=== PATIENT | male | born 1955 | race Caucasian/White ===

== ENCOUNTER 2023-01-24 07:15 | Outpatient (CLI) | payer MEDICARE, MEDICAID | END 2023-01-24 23:59 | disposition short-term general hospital (02) | LOC: EMS 07:15 | DX: K62.5 Hemorrhage of anus and rectum (principal); R11.0 Nausea | CPT/HCPCS: A0425; A0427 ==

== ENCOUNTER 2023-02-04 09:21 | Outpatient (CLI) | payer MEDICARE, MEDICAID ==
[2023-02-04 11:05] VITALS: BP 126/72
--- NOTE | 2023-02-04 11:05 | SLEEP CARE CONSULTATION ---
Information from patient questionnaire entered by Shanna Murray. I have reviewed and concur with the information entered by Shanna Murray. This document represents the service I personally performed and the decisions made by me, Darion Herzog MD, [facility]. History of Present Illness Service Date and Time: 02/04/2023920 Reason for Visit: New patient Snores at night: Yes Sleeps alone due to snoring: No Number of times waking at night: 2-3 Reasons for waking at night: reports: Bathroom, Other (UNKOWN) Toss, Turn, or Twitch while sleeping: Yes Recalls having dreams: Yes Usually gets out of bed at: 6AM Feels refreshed in the morning: No Morning headache: Yes Sleepy or fatigued during the day: Yes Ever fallen asleep while driving: No Takes day naps: Yes Dreams during day naps: No Prior sleep studies: Yes ([facility]) Additional HPI information: I had the pleasure of seeing Mr. Valencia along with his today regarding obstructive sleep apnea-hypopnea. As you know, he is a 67-year-old gentleman who was diagnosed with the sleep-disordered breathing at [facility] in [place] on 09/05/2012. The AHI was 45.3. He was prescribed a BiPAP device set at 14/8 cmH2O. He also uses oxygen supplement at 2 L/minute. He uses every night and all night. The compliance data show usage in 88 out of the past 90 nights, averaging 8.8 hours a night. The residual AHI is 0.5 and average air leak is 4.4 L/minute. He wears a full face mask. He gets his supplies from [employer]. He finds the treatment very beneficial. His current BiPAP is only 3 months old - Parasomnia Symptoms Ever been unable to move upon waking from sleep: No Walks in sleep: No Talks in sleep: No Ever acted out dreams in sleep: No Ever felt weak in the knees when startled or emotional: No Bothered by creepy, crawly, restless sensations in legs: Yes Problems with memory or concentration: No Subjective Initial [place] Sleepiness Scale score: 3 (02/04/23) Social History The patient's occupation is a RE. Patient is and lives in [place]. Have you smoked in the past 12 months: No Years of smokin Quit date: 2002 Alcohol use: No Caffeine use: Yes Caffeine amount and frequency: 1POT A WEEK Family History Family history of sleep disordered breathing: No Allergies and Home Medications Known drug allergies: Yes Drug allergies reviewed: Yes Home medication list reviewed: Yes Review of Systems Cardiovascular: reports: high blood pressure, leg or foot swelling Respiratory: reports: wheeze, sputum production Gastrointestinal: reports: heartburn, nausea, diarrhea, abdominal pain Urinary: reports: frequency, urgency Neurological: reports: headaches Psychiatric: reports: claustrophobia Ear/Nose/Throat: reports: nasal congestion, sinus problems, dry mouth/throat, injury to nose Endocrine: reports: sluggishness, too hot or cold, excessive thirst, increased urination, unexplained weakness Musculoskeletal: reports: joint pain, neck pain, back pain, joint swelling, muscle pain or cramping, mobility problems Immunologic: reports: sneezing, rash, itching Physical Exam Vital signs obtained and entered by: SHANNA Villarreal MA Blood Pressure: 126/72 (LEFT ARM) Cuff size: regular Heart Rate: 57 O2 Saturation: 96 Height: 5 ft 10 in Weight: 302 lb Body Mass Index: 43.3 BMI Classification: Morbidly Obese Neck circumference: 19.75 Mood/affect: Normal HEENT: No craniofacial malformation Nostrils: patent to airflow Turbinates: normal Septum: midline Mouth and throat: narrow oropharynx (no upper teeth) Soft palate: long Hard palate: normal Uvula: normal Uvula visualization: 25% Mallampati Class III Tongue: normal in size Tonsils: small Chin and jaw: normal size and position Neck: normal w/o lymphadenopathy or thyromegaly Heart: regular rate and rhythm Lungs: wheeze Extremities: 2+ edema Neurologic: intact Impression and Plan IMPRESSION: 1. Obstructive Sleep Apnea-Hypopnea Syndrome, severe, as previously diagnosed. The patient is using his BiPAP comfortably. He has good treatment compliance and reports significant improvement on it. Narrow oropharynx and obesity are common predisposing factors for obstructive sleep apnea-hypopnea syndrome. No adjustment is necessary today. Plan: 1. Continue with BiPAP + oxygen. 2. Try to lose weight. 3. Return for follow up in a year or earlier if there is any problem. Counseling Topics: Weight control Follow up with Sleep Care in: 1 year Visit Type: In Office Other Participants: Spouse/Significant Other Time Spent with Patient (minutes): 15 Provider Statement: I spent 100% of the Face to Face Visit with the patient with greater than 50% spent counseling the patient and coordination of care.
== END 2023-02-04 09:22 | disposition home or self-care (01) ==
LOC: SC 09:21
PROVIDERS: ATTEND Internal Medicine Pulmonary Disease
DX: G47.33 Obstructive sleep apnea (adult) (pediatric) (principal); E66.01 Morbid (severe) obesity due to excess calories; Z68.41 Body mass index [BMI] 40.0-44.9, adult; Z87.891 Personal history of nicotine dependence
CPT/HCPCS: 99202; G0463; 99212